=== PATIENT | male | born 1960 | race Caucasian/White ===

== ENCOUNTER 2018-11-14 07:00 | Day surgery (SDC) | payer BC ==
[~2018-11-14 07:00] MED LIST: ACETAMINOPHEN 1,000 MG/100 ML BTL IVPB ONE; CEFAZOLIN 2 Gram 2 GM/50 ML BAG IVPB ONE
[2018-11-14] MEDS ORDERED: KETOROLAC 30 MG/ML VIAL IVP ONE (07:01)
[2018-11-14] MEDS ORDERED: MIDAZOLAM HCL 2MG/2ML VIAL IV ONE (07:01)
[2018-11-14] MEDS ORDERED: SEVOFLURANE 250 ML INH ONE (07:01)
[2018-11-14] MEDS ORDERED: PROPOFOL 10 MG/ML VIAL IV ONE (07:01)
[2018-11-14] MEDS ORDERED: MORPHINE SULFATE 4 MG/ML VIAL IVP ONE (07:01)
[2018-11-14] MEDS ORDERED: LIDOCAINE 2% MDV (20MG/ML) 20ML VIAL IV ONE (07:01)
[2018-11-14] MEDS ORDERED: RINGERS SOLUTION,LACTATED 1,000 ML IV ONE ×2 (09:13→09:46)
[2018-11-14] MEDS ORDERED: MORPHINE SULFATE 5 MG/ML PREFILLED SYRINGE IM ONE (10:00)
[2018-11-14] MEDS ORDERED: METHYLPREDNISOLONE 40MG/VIAL IU ONE (10:00)
[2018-11-14] MEDS ORDERED: BUPIVACAINE 0.5% W/EPI MPF 30 ML VIAL SQ ONE (10:00)
[2018-11-14] MEDS ORDERED: FENTANYL PF 100MCG/2ML VIAL ONE (10:20)
[2018-11-14] MEDS ORDERED: FENTANYL PF 100MCG/2ML VIAL IVP ONE (10:29)
[2018-11-14] MEDS ORDERED: HYDROCODONE/APAP 7.5/325MG TABLET PO ONE (10:43)
--- NOTE | 2018-11-15 15:40 | Operative Note ---
DATE OF SURGERY: 11/14/2018 PREOPERATIVE DIAGNOSIS: Internal derangement of the left knee. POSTOPERATIVE DIAGNOSES: 1. Grade 3 chondromalacia of the patella. 2. Grade 3 chondromalacia of the notch. 3. Large complex tear involving the posterior horn of the medial meniscus. 4. Grade 3 chondromalacia of the medial femoral condyle. 5. Fringe tear involving the posterior horn of the lateral meniscus. 6. Grade 3 chondromalacia of the lateral tibial plateau. 7. Diffuse synovitis. OPERATION: 1. Left knee arthroscopy with partial and medial lateral meniscectomy. 2. Left knee arthroscopy with complete synovectomy. 3. Left knee arthroscopy with chondroplasty of all 3 compartments. SURGEON: Michael Arboleda M.D. ANESTHESIA: General. PREPARATION: Chloraprep. INDIVIDUAL CONSIDERATIONS: None. PROCEDURE: The patient was taken to the operating room and placed supine on the operating room table. He had a successful induction with general anesthetic. His left lower extremity was prepped and draped in the usual fashion. The patient had a superior lateral inflow cannula placed. The skin was infiltrated with 0.5% Marcaine with epinephrine prior. The knee was then inflated with normal saline. An inferior medial and an inferior lateral portal were made in a similar fashion. The arthroscope was introduced through the inferior lateral portal up in the pouch. The patient had moderate synovitis in the pouch and both gutters and this was debrided out with the shaver. He had grade 3 changes on the patella with peeling cartilage, primarily the lateral facet, which was smoothed off with the shaver, again similarly in the notch with also essentially a peeling cartilage in the periphery and this was smoothed with a shaver and stable cartilage was debrided out. Then, also around the medial femoral condyle, just lateral to the midline, extended it 45 degrees and flexing to 90 with unstable cartilage debrided with a shaver, but not down to bone. Basically, the posterior horn was completely unstable, it was a degenerative split tear with 2 large unstable flaps, 1 posterior laterally and 1 posterior medially and degeneration between. This was all debrided out with a stable rim, basically removing most of it with the basket forceps and a shaver and the notch and the cruciates were normal and the lateral side fringe tear posteriorly debrided out with a shaver and grade 3 changes on the lateral tibial plateau and the posterior half smoothed with the shaver, but not down to bone. After irrigation, the portals were closed with kyle and 20 mL of 0.5% Marcaine with epinephrine along with 4 mg of morphine and 40 mg of Depo-Medrol were injected into the knee and a sterile bulky compressive dressing was applied. The patient tolerated the procedure well. The needle and sponge counts were correct. Estimated blood loss was minimal. He was taken back to recovery in good condition. There were no complications. KARTHIK
== END 2018-11-14 11:01 | disposition home or self-care (01) ==
LOC: SUR 07:00
PROVIDERS: ATTEND Orthopaedic Surgery
DX: S83.232A Complex tear of medial meniscus, current injury, left knee, initial encounter (principal); S83.282A Other tear of lateral meniscus, current injury, left knee, initial encounter; M65.9 Synovitis and tenosynovitis, unspecified; M94.262 Chondromalacia, left knee; E78.00 Pure hypercholesterolemia, unspecified
CPT/HCPCS: 29880; 29876; 01400; J1885; J3010; J0690; J2270; J1030; J7120